=== PATIENT | male | born 1985 | race Caucasian/White ===

== ENCOUNTER 2021-08-01 07:19 | Emergency (ER) | payer MEDICAID, SELFPAY ==
[2021-08-01 07:31] VITALS: BP 125/91; PULSE 76; RESP 20; O2SAT 98
--- NOTE | 2021-08-01 07:39 | ED_ITS ---
Documented by User: YOLY Martin 08/01/21 09:32 HPI - Abdominal Pain General: Chief Complaint: Abdominal Pain Stated Complaint: ABD/back pain Time Seen by Provider: 08/01/21 07:20 Source: patient Mode of arrival: ambulatory Limitations: no limitations History of Present Illness: Patient is a 35-year-old male with a history of GOLDSTEIN and Gilbert syndrome here with his significant other for concerns of right- sided back and abdominal pains. Patient states pain came on fairly suddenly to his right back/flank and radiated around into his abdomen. states he was up all night secondary to his discomfort. He is complaining of nausea without episodes of emesis. Bowel movements have been normal. He has not noticed any urinary symptoms. He denies history of kidney stones. No fevers. MD elicited complaint: abdominal pain Onset (ago): day(s) (yesterday) Pain Consistency: constant Location: RUQ, RLQ and R flank Severity: severe Quality: sharp Exacerbating factors: nothing Relieving factors: nothing Associated Symptoms: Reports nausea; Denies change in bowel habits, chills, diarrhea, dysuria, fever(s), heartburn, hematemesis and vomiting Review of Systems Const: Denies: fever(s), chills, body aches, fatigue or malaise Card: Denies: chest pain Resp: Denies: dyspnea GI: Reports: abdominal pain and nausea; Denies: vomiting, hematemesis, heartburn, diarrhea or change in bowel habits : Reports: flank pain; Denies: difficulty urinating, dysuria, urinary frequency, urinary urgency or urinary hesitancy Musc: Denies: neck pain, extremity pain or joint pain Skin/Breast: Denies: rash Neuro: Denies: headache(s), numbness in extremities, weakness in extremities, sensory changes or dizziness Physical Exam Const: COMMON NORMALS: patient oriented x3, no limitations, alert and well nourished GENERAL APPEARANCE: cooperative and in distress (appears uncomfortable secondary to pain) ORIENTATION/CONSCIOUSNESS: Yes awake, Yes oriented to person, Yes oriented to place and Yes oriented to time HENMT: COMMON NORMALS: normocephalic and atraumatic HEAD & SCALP: normal to inspection, normocephalic and atraumatic Eye: SCLERA: scleral abnormal Laterality of scleral abnormality: positive bilateral scleral icterus (states this is fairly normal with his Gilbert's syndrome) Neck/C-Spine: GENERAL: Yes normal visual inspection Chest: COMMONS NORMALS: normal inspection of the chest and normal palpation of entire chest wall Resp: COMMON NORMALS: normal respiratory effort and clear to auscultation bilaterally AUSCULTATION: clear to auscultation bilaterally Cardio: COMMON NORMALS: regular rate and regular rhythm RATE: regular rate RHYTHM: regular rhythm GI: COMMON NORMALS: Normal to inspection, nondistended, normoactive bowel sounds present, Soft to palpation and no masses INSPECTION: Yes normal to inspection AUSCULTATION: Yes normoactive bowel sounds PALPATION: Yes Soft to palpation and Yes Tenderness to palpation present (GI) (throughout R abdomen but mainly lower; no direct RUQ pain) : BLADDER/KIDNEY EXAM: Yes CVA tenderness (tenderness inferiorly as well ) on the right Back/Pelvis: COMMON NORMALS: thoracic and lumbar spine normal to inspection, no thoracic nor lumbar tenderness and thoraco-lumbar ROM normal GENERAL BACK: Yes CVA tenderness (tenderness inferiorly as well ) Extremity: COMMON NORMALS: normal to inspection GENERAL: Yes normal exam except as noted Neuro: LILIAN COMA SCALE: document GCS findings Lilian coma scale eye opening: Spontaneous Lilian coma scale verbal response: Orientated Lilian coma scale motor response: Obey commands Lilian coma scale total score: 15 COMMON NORMALS: patient oriented x3, moves all extremities, no focal motor deficits and no sensory deficits noted SENSORIUM/ORIENTATION: Yes alert, Yes oriented to person, Yes oriented to place and Yes oriented to time Skin: COMMON NORMALS: no rashes or lesions noted NARRATIVE SKIN EXAM: overall he looks jaundiced-again he states this is fairly normal for him with his Gilbert's GENERAL SKIN EXAM: no rashes or lesions noted Course Vital Signs: Vital signs: Vital Signs Pulse Rate 73 08/01/21 09:36 Respiratory Rate 18 08/01/21 09:36 Blood Pressure 109/70 08/01/21 09:36 Pulse Oximetry 95 08/01/21 09:36 MDM - Abdominal Pain Medical Decision Making Patient has a right proximal ureter stone measuring approximately 3.8 mm. Pain is controlled here with IV pain medications. Blood work is unremarkable. UA with hematuria but no evidence for infection. CT scan also mentioned suspected undescended right testicle. When questioned about this patient states he is aware of this but has not had any follow-up for this stating I have been meaning to see urology for it . I did discuss with patient how this does place him at slightly increased risk for testicular cancer. Recommend when he follows up with Dr. Harkins for the ureter stone they also discuss this. Patient agrees. He will be sent home with pain/nausea medications and Flomax as well as a urine strainer with recommendations to push fluids. Return to ED precautions verbally given to patient. Lab Data : 08/01/21 07:40 08/01/21 07:40 Labs/Radiology: Radiology Impressions Abdomen/Pelvis CT 08/01/21 07:53 IMPRESSION: 1. 3.8 mm obstructing RIGHT UPJ calculus with moderate hydronephrosis. Minimal inflammatory stranding about the RIGHT kidney. RIGHT distal ureter is decompressed. 2. No hydronephrosis in the LEFT kidney. Tiny nonobstructing LEFT calyceal tip calculus. 3. No other acute findings. 4. Tiny fat-containing umbilical hernia. 5. Suspected undescended RIGHT testicle. Scrotal sac incompletely visualized. This can be further evaluated with ultrasound and urology consultation. Notified YOLY Martin at 08/01/2021 8:51 AM. Laboratory Results WBC 8.6 10^3/uL (4.0-10.0) 08/01/21 07:40 RBC 5.05 10^6/uL (4.1-5.3) 08/01/21 07:40 Hgb 15.9 g/dL (11.7-16.6) 08/01/21 07:40 Hct 44.8 % (42.0-52.0) 08/01/21 07:40 MCV 88.7 fl (80-94) 08/01/21 07:40 MCH 31.5 pg (28.0-34.0) 08/01/21 07:40 MCHC 35.5 g/dL (30.0-36.0) 08/01/21 07:40 RDW 12.2 % (12.1-15.1) 08/01/21 07:40 Plt Count 243 10^3/cmm (130-400) 08/01/21 07:40 MPV 12.3 fL (7.4-10.4) H 08/01/21 07:40 Neut % (Auto) 50.7 % 08/01/21 07:40 Lymph % (Auto) 35.8 % 08/01/21 07:40 [place] % (Auto) 9.2 % 08/01/21 07:40 Eos % (Auto) 3.2 % 08/01/21 07:40 Baso % (Auto) 0.9 % 08/01/21 07:40 Neut # (Auto) 4.33 10^3/uL (1.8-7.7) 08/01/21 07:40 Lymph # (Auto) 3.1 10^3/uL (0.8-4.8) 08/01/21 07:40 [place] # (Auto) 0.8 10^3/uL (0.2-0.9) 08/01/21 07:40 Eos # (Auto) 0.3 10^3/uL (0.0-0.8) 08/01/21 07:40 Baso # (Auto) 0.1 10^3/uL (0.0-0.1) 08/01/21 07:40 Nucleated RBC % (auto) 0 % 08/01/21 07:40 Nucleated RBCs # 0.0 /100WBC 08/01/21 07:40 Sodium 141 mmol/L (136-145) 08/01/21 07:40 Potassium 3.8 mmol/L (3.5-5.1) 08/01/21 07:40 Chloride 105 mmol/L (98-107) 08/01/21 07:40 Carbon Dioxide 25 mmol/L (22-29) 08/01/21 07:40 Anion Gap 14.8 (5-19) 08/01/21 07:40 BUN 15 mg/dL (6-20) 08/01/21 07:40 Creatinine 0.8 mg/dL (0.7-1.2) 08/01/21 07:40 GFR Calculation 110.0 mL/min (90-130) 08/01/21 07:40 Glucose 131 mg/dL (65-115) H 08/01/21 07:40 Calculated Osmolality 295 mOsm/kg (285-295) 08/01/21 07:40 Calcium 8.6 mg/dL (8.5-10.5) 08/01/21 07:40 Total Bilirubin 1.4 mg/dL (0.15-1.2) H 08/01/21 07:40 AST 24 U/L (0-40) 08/01/21 07:40 ALT 43 U/L (0-41) H 08/01/21 07:40 Alkaline Phosphatase 60 IU/L (40-130) 08/01/21 07:40 Total Protein 7.1 g/dL (6.6-8.7) 08/01/21 07:40 Albumin 4.7 g/dL (3.5-5.2) 08/01/21 07:40 Globulin 2.4 g/dL (1.3-4.6) 08/01/21 07:40 Lipase 36 U/L (13-60) 08/01/21 07:40 Urine Color Yellow (Yellow) 08/01/21 08:40 Urine Appearance Hazy (CLEAR) A 08/01/21 08:40 Urine pH 5 (5-7) 08/01/21 08:40 Ur Specific [place] 1.025 (1.005-1.030) 08/01/21 08:40 Urine Protein Neg (Negative) 08/01/21 08:40 Urine Glucose (UA) Norm (Normal) 08/01/21 08:40 Urine Ketones Negative (Negative) 08/01/21 08:40 Urine Blood 3+ (Negative) H 08/01/21 08:40 Urine Nitrate Negative (Negative) 08/01/21 08:40 Urine Bilirubin Neg (Negative) 08/01/21 08:40 Urine Urobilinogen Norm mg/dL (Negative) 08/01/21 08:40 Ur Leukocyte Esterase Negative (Negative) 08/01/21 08:40 Urine RBC >100 /hpf (0-2) H 08/01/21 08:40 Urine WBC 0-4 /hpf (0-5) H 08/01/21 08:40 Ur Squamous Epith Cells None /hpf (0-5) 08/01/21 08:40 Amorphous Sediment Not Reportable 08/01/21 08:40 Urine Bacteria None /hpf (NONE) 08/01/21 08:40 Discharge Plan Discharge Patient Disposition: Home Clinical Impression: Calculus of proximal left ureter Condition: Stable Prescriptions: New hydrocodone-acetaminophen 5-325 mg tablet 1 - 2 tab PO .q4-6 PRN (Reason: pain) Qty: 20 0RF Flomax 0.4 mg capsule 0.4 mg PO DAILY Qty: 10 0RF ondansetron 4 mg tablet,disintegrating 4 mg PO Q8H PRN (Reason: nausea and vomiting) Qty: 14 0RF Discharge Orders: Discharge ED (Routine); Ordered 08/01/21 Ordered By: Merle Goldstein Patient Instructions: Ureteral Stones (ED), Opioid Safety Activity Restrictions/Additional Instructions: As we discussed you need to push fluids as much as possible. Begin straining your urine and bring any stones that you passed with you to your urology follow- up appointment. Dr. Harkins can also speak to you in regards to undescended testicle findings. You need to return to the emergency department for uncontrollable pain at home, repetitive episodes of vomiting, inability to hold down your medications, fevers, or any other concerns you may have. I hope you begin to feel better soon. Coding Level of Care Code ED Fishing Tool Operator for Chg Fwd Exam Comprehensive Documented by User: Rao Holden DO 08/01/21 10:16 HPI - Abdominal Pain General: Chief Complaint: Abdominal Pain Stated Complaint: ABD/back pain Time Seen by Provider: 08/01/21 07:20 Physical Exam Neuro: LILIAN COMA SCALE: document GCS findings [facility] coma scale total score: 15 Course Vital Signs: Vital signs: Vital Signs Pulse Rate 73 08/01/21 09:36 Respiratory Rate 18 08/01/21 09:36 Blood Pressure 109/70 08/01/21 09:36 Pulse Oximetry 95 08/01/21 09:36 MDM - Abdominal Pain Medical Decision Making Patient has a right proximal ureter stone measuring approximately 3.8 mm. Pain is controlled here with IV pain medications. Blood work is unremarkable. UA with hematuria but no evidence for infection. CT scan also mentioned suspected undescended right testicle. When questioned about this patient states he is aware of this but has not had any follow-up for this stating I have been meaning to see urology for it . I did discuss with patient how this does place him at slightly increased risk for testicular cancer. Recommend when he follows up with Dr. Harkins for the ureter stone they also discuss this. Patient agrees. He will be sent home with pain/nausea medications and Flomax as well as a urine strainer with recommendations to push fluids. Return to ED precautions verbally given to patient. Chart reviewed and patient discussed with midlevel. Agree with assessment and plan. Lab Data : 08/01/21 07:40 08/01/21 07:40 Labs/Radiology: Radiology Impressions Abdomen/Pelvis CT 08/01/21 07:53 IMPRESSION: 1. 3.8 mm obstructing RIGHT UPJ calculus with moderate hydronephrosis. Minimal inflammatory stranding about the RIGHT kidney. RIGHT distal ureter is decompressed. 2. No hydronephrosis in the LEFT kidney. Tiny nonobstructing LEFT calyceal tip calculus. 3. No other acute findings. 4. Tiny fat-containing umbilical hernia. 5. Suspected undescended RIGHT testicle. Scrotal sac incompletely visualized. This can be further evaluated with ultrasound and urology consultation. Notified YOLY Martin at 08/01/2021 8:51 AM. Laboratory Results WBC 8.6 10^3/uL (4.0-10.0) 08/01/21 07:40 RBC 5.05 10^6/uL (4.1-5.3) 08/01/21 07:40 Hgb 15.9 g/dL (11.7-16.6) 08/01/21 07:40 Hct 44.8 % (42.0-52.0) 08/01/21 07:40 MCV 88.7 fl (80-94) 08/01/21 07:40 MCH 31.5 pg (28.0-34.0) 08/01/21 07:40 MCHC 35.5 g/dL (30.0-36.0) 08/01/21 07:40 RDW 12.2 % (12.1-15.1) 08/01/21 07:40 Plt Count 243 10^3/cmm (130-400) 08/01/21 07:40 MPV 12.3 fL (7.4-10.4) H 08/01/21 07:40 Neut % (Auto) 50.7 % 08/01/21 07:40 Lymph % (Auto) 35.8 % 08/01/21 07:40 [place] % (Auto) 9.2 % 08/01/21 07:40 Eos % (Auto) 3.2 % 08/01/21 07:40 Baso % (Auto) 0.9 % 08/01/21 07:40 Neut # (Auto) 4.33 10^3/uL (1.8-7.7) 08/01/21 07:40 Lymph # (Auto) 3.1 10^3/uL (0.8-4.8) 08/01/21 07:40 [place] # (Auto) 0.8 10^3/uL (0.2-0.9) 08/01/21 07:40 Eos # (Auto) 0.3 10^3/uL (0.0-0.8) 08/01/21 07:40 Baso # (Auto) 0.1 10^3/uL (0.0-0.1) 08/01/21 07:40 Nucleated RBC % (auto) 0 % 08/01/21 07:40 Nucleated RBCs # 0.0 /100WBC 08/01/21 07:40 Sodium 141 mmol/L (136-145) 08/01/21 07:40 Potassium 3.8 mmol/L (3.5-5.1) 08/01/21 07:40 Chloride 105 mmol/L (98-107) 08/01/21 07:40 Carbon Dioxide 25 mmol/L (22-29) 08/01/21 07:40 Anion Gap 14.8 (5-19) 08/01/21 07:40 BUN 15 mg/dL (6-20) 08/01/21 07:40 Creatinine 0.8 mg/dL (0.7-1.2) 08/01/21 07:40 GFR Calculation 110.0 mL/min (90-130) 08/01/21 07:40 Glucose 131 mg/dL (65-115) H 08/01/21 07:40 Calculated Osmolality 295 mOsm/kg (285-295) 08/01/21 07:40 Calcium 8.6 mg/dL (8.5-10.5) 08/01/21 07:40 Total Bilirubin 1.4 mg/dL (0.15-1.2) H 08/01/21 07:40 AST 24 U/L (0-40) 08/01/21 07:40 ALT 43 U/L (0-41) H 08/01/21 07:40 Alkaline Phosphatase 60 IU/L (40-130) 08/01/21 07:40 Total Protein 7.1 g/dL (6.6-8.7) 08/01/21 07:40 Albumin 4.7 g/dL (3.5-5.2) 08/01/21 07:40 Globulin 2.4 g/dL (1.3-4.6) 08/01/21 07:40 Lipase 36 U/L (13-60) 08/01/21 07:40 Urine Color Yellow (Yellow) 08/01/21 08:40 Urine Appearance Hazy (CLEAR) A 08/01/21 08:40 Urine pH 5 (5-7) 08/01/21 08:40 Ur Specific [place] 1.025 (1.005-1.030) 08/01/21 08:40 Urine Protein Neg (Negative) 08/01/21 08:40 Urine Glucose (UA) Norm (Normal) 08/01/21 08:40 Urine Ketones Negative (Negative) 08/01/21 08:40 Urine Blood 3+ (Negative) H 08/01/21 08:40 Urine Nitrate Negative (Negative) 08/01/21 08:40 Urine Bilirubin Neg (Negative) 08/01/21 08:40 Urine Urobilinogen Norm mg/dL (Negative) 08/01/21 08:40 Ur Leukocyte Esterase Negative (Negative) 08/01/21 08:40 Urine RBC >100 /hpf (0-2) H 08/01/21 08:40 Urine WBC 0-4 /hpf (0-5) H 08/01/21 08:40 Ur Squamous Epith Cells None /hpf (0-5) 08/01/21 08:40 Amorphous Sediment Not Reportable 08/01/21 08:40 Urine Bacteria None /hpf (NONE) 08/01/21 08:40 Discharge Plan Discharge Patient Disposition: Home Clinical Impression: Calculus of proximal left ureter Condition: Stable Prescriptions: New hydrocodone-acetaminophen 5-325 mg tablet 1 - 2 tab PO .q4-6 PRN (Reason: pain) Qty: 20 0RF Flomax 0.4 mg capsule 0.4 mg PO DAILY Qty: 10 0RF ondansetron 4 mg tablet,disintegrating 4 mg PO Q8H PRN (Reason: nausea and vomiting) Qty: 14 0RF Discharge Orders: Discharge ED (Routine); Ordered 08/01/21 Ordered By: Merle Goldstein Patient Instructions: Ureteral Stones (ED), Opioid Safety Activity Restrictions/Additional Instructions: As we discussed you need to push fluids as much as possible. Begin straining your urine and bring any stones that you passed with you to your urology follow- up appointment. Dr. Harkins can also speak to you in regards to undescended testicle findings. You need to return to the emergency department for uncontrollable pain at home, repetitive episodes of vomiting, inability to hold down your medications, fevers, or any other concerns you may have. I hope you begin to feel better soon. Coding Level of Care Code ED Fishing Tool Operator for Brett Fwteo Exam Comprehensive
[2021-08-01 07:51] VITALS: RESP 19
[2021-08-01] MEDS: sodium chloride 0.9% 1,000 ML 999 ML IV (07:51)
[2021-08-01] MEDS: morphine 4 mg/mL SDV 1 mL IVP (07:51)
[2021-08-01] MEDS: ondansetron 2 mg/ML SDV 2 mL 4 MG IVP (07:51)
--- NOTE | 2021-08-01 07:53 | CT_ITS ---
WS: [id number] CT ABDOMEN PELVIS TECHNIQUE: Noncontrast CT of the abdomen and pelvis with coronal and sagittal reformatted images. CLINICAL INFORMATION: R back/diffuse R abdominal pain COMPARISON: None. DLP: 1494.[address] scans at [facility] use at least one of these dose optimization techniques: automated e xposure control; mA and/or kV adjustment per patient size (includes targeted exams where dose is matc hed to clinical indication); or iterative reconstruction. FINDINGS: Mild RIGHT hydronephrosis with obstructing RIGHT UPJ calculus measuring 3.8 mm. Mild inflammatory str anding about the RIGHT kidney. Distal RIGHT ureter is decompressed. LEFT kidney is normal. No obstruc ting LEFT renal or ureteral calculi. LEFT ureter is decompressed. Tiny nonobstructing LEFT calyceal t ip calculus. Lung bases are well aerated. Adrenal glands are normal. Noncontrast liver is normal. Nor mal gallbladder. Noncontrast spleen is normal. Normal GE junction. Noncontrast pancreas is normal. Normal caliber abdominal aorta. Normal Sigmoid colon. No evidence of small or large bowel obstruction. Tiny fat-containing umbilical hernia. No free fluid in the pelvis. Pedicle screw fixation L5-S1 with interbody fusion. Slight anterolisthesis L5 on S1. Suspected undescended RIGHT testicle. Scrotal sac is incompletely imaged on this examination. Suspect ed Suprascrotal RIGHT testicle measuring 4.1 x 2.9 x 4.3 cm. Recommend urology consultation as patien ts at increased risk for testicular carcinoma CT/CT kidney stone [id number] IMPRESSION: 1. 3.8 mm obstructing RIGHT UPJ calculus with moderate hydronephrosis. Minimal inflammatory stranding about the RIGHT kidney. RIGHT distal ureter is decompre ssed. 2. No hydronephrosis in the LEFT kidney. Tiny nonobstructing LEFT calyceal tip calculus. 3. No other acute findings. 4. Tiny fat-containing umbilical hernia. 5. Suspected undescended RIGHT testicle. Scrotal sac incompletely visualized. This can be further evaluated with ultrasound and urology consultation. Notified YOLY Martin at 08/01/2021 8:51 AM.
[2021-08-01 08:27] VITALS: RESP 16; O2SAT 96
[2021-08-01] MEDS: HYDROmorphone 1 mg/mL INJ 1 mL IVP (08:27)
[2021-08-01 08:34] LABS: Basophils # 0.1 10^3/uL (0.0-0.1); Basophils % 0.9 %; Eosinophils # 0.3 10^3/uL (0.0-0.8); Eosinophils % 3.2 %; Hematocrit 44.8 % (42.0-52.0); Hemoglobin 15.9 g/dL (11.7-16.6); Lymphocytes # 3.1 10^3/uL (0.8-4.8); Lymphocytes % 35.8 %; Mean Corpuscular HGB Conc 35.5 g/dL (30.0-36.0); Mean Corpuscular Hemoglobin 31.5 pg (28.0-34.0); Mean Corpuscular Volume 88.7 fl (80-94); Mean Platelet Volume 12.3 fL (7.4-10.4); Monocytes # 0.8 10^3/uL (0.2-0.9); Monocytes % 9.2 %; Neutrophils # 4.33 10^3/uL (1.8-7.7); Neutrophils % 50.7 %; Nucleated Red Blood Cells % 0 %; Platelet Count 243 10^3/cmm (130-400); Red Blood Count 5.05 10^6/uL (4.1-5.3); Red Cell Distribution Width 12.2 % (12.1-15.1); White Blood Count 8.6 10^3/uL (4.0-10.0)
[2021-08-01 08:52] LABS: Add Urine Microscopic? YES; Bilirubin Urine Neg (Negative); Blood Urine 3+ (Negative); Glucose Urine UA Norm (Normal); Ketones Urine Negative (Negative); Leukocyte Esterase Urine Negative (Negative); Nitrate Urine Negative (Negative); Protein Urine Neg (Negative); Specific Gravity, Urine 1.025 (1.005-1.030); Urine Appearance Hazy (CLEAR); Urine Color Yellow (Yellow); Urobilinogen Urine Norm (Negative); pH Urine 5 (5-7)
[2021-08-01 08:53] LABS: Add Urine Culture? Yes; RBC Urine >100 /hpf (0-2); WBC Urine 0-4 /hpf (0-5)
[2021-08-01 08:54] LABS: Alanine Aminotransferase 43 U/L (0-41); Albumin Level 4.7 g/dL (3.5-5.2); Alkaline Phosphatase 60 IU/L (40-130); Anion Gap 14.8 (5-19); Aspartate Amino Transferase 24 U/L (0-40); Blood Urea Nitrogen 15 mg/dL (6-20); Calcium 8.6 mg/dL (8.5-10.5); Carbon Dioxide 25 mmol/L (22-29); Chloride 105 mmol/L (98-107); Globulin 2.4 g/dL (1.3-4.6); Glucose 131 mg/dL (65-115); Lipase 36 U/L (13-60); Osmolality Calculated 295 mOsm/kg (285-295); Potassium 3.8 mmol/L (3.5-5.1); Sodium 141 mmol/L (136-145); Total Bilirubin 1.4 mg/dL (0.15-1.2); Total Protein 7.1 g/dL (6.6-8.7)
[2021-08-01 09:36] VITALS: BP 109/70; PULSE 73; RESP 18; O2SAT 95
--- NOTE | 2021-08-02 08:39 | DCPLANNER ---
Addendum entered by Christina Tony 09/02/21 06:10: Patient had a follow up appointment scheduled for 08.28.[address] Harkins - patient did attend appointment. Addendum entered by Christina Tony 08/28/21 09:01: Patient has a follow up appointment scheduled for Saturday, August 28, 2021 at 1:00 with urology. Clinic will call patient with appointment information. Original Note: physiotherapy practice manager had message to schedule a follow up appointment for patient with urology. physiotherapy practice manager sent patients information to the front office staff at urology. Patients information will be printed and reviewed. Clinic will call patient with appointment information.
== END 2021-08-01 09:35 | disposition home or self-care (01) ==
PROVIDERS: Emergency Provider Physician Assistant
DX: N13.2 Hydronephrosis with renal and ureteral calculous obstruction (principal); K75.81 Nonalcoholic steatohepatitis (NASH); E80.4 Gilbert syndrome
CPT/HCPCS: 74176; 80053; 81001; 83690; 85025; 87086; 96361; 96374; 96375; 99284; J1170; J2270; J2405; J7030

== ENCOUNTER 2021-08-28 12:00 | Outpatient (CLI) | payer MEDICAID, SELFPAY ==
--- NOTE | 2021-08-28 13:06 | XR_ITS ---
WS: [id number] KUB, AP view, 08/28/2021. Clinical Data: STONES Comparison: None. Findings: There is a 0.4 cm calcification overlying the right L4 transverse process which may represent a proxi mal ureteral calculus. No radiopaque calculi overlie the kidneys. The kidneys are partly obscured by fecal material. There is a posterior lumbar fusion at L5-S1 with a laminectomy at L5. The bladder is partly full but there are no pelvic calculi. XR/XR KUB [id number] Impression: Probable right ureteral calculus.
== END 2021-08-28 12:01 | disposition home or self-care (01) ==
LOC: RAD 12:03
PROVIDERS: Visit Provider Urology
DX: N13.2 Hydronephrosis with renal and ureteral calculous obstruction (principal)
CPT/HCPCS: 74018; 81003

== ENCOUNTER 2021-09-03 07:48 | Day surgery (SDC) | payer MEDICAID, SELFPAY ==
[2021-08-31 10:00] VITALS: BMI 28.3
[2021-09-03] VITALS (7 sets, daily range): BP systolic 101–136; BP diastolic 53–89; PULSE 81–100; RESP 16–18; TEMP 36.2–36.5; O2SAT 93–98
--- NOTE | 2021-09-03 07:52 | XR_ITS ---
WS: [id number] Exam: XR KUB [id number] Date/Time of Exam: 09/03/2021 7:56 AM Reason For Exam: Preop right ureteral ESWL Comparison 08/28/2021. 2 calcifications are seen along the right paraspinal region at about the level of L2 and L3 and may r epresent ureteral calculi. The inferior most calcification is unchanged in location. No bowel obstruc tion or free air. Interbody fusion of the lumbar spine at L4-5. No sign of organ enlargement. XR/XR KUB [id number] IMPRESSION: 1. 2 calcifications are seen along the right paraspinal region and may represen t ureteral stones. Additional small calcification superimpose both renal silhou ettes and may represent nonobstructing bilateral renal stones.
[2021-09-03] MEDS: sodium chloride 0.9% 1,000 ML 30 ML IV (08:28)
--- NOTE | 2021-09-03 09:52 | W.PM.OPSUD ---
Surgery/Procedure H&P Update DATE OF PROCEDURE: September 03, 2021 DATE H&P PERFORMED: 08/28/21 H&P UPDATE INFORMATION: I have reviewed H&P completed within last 30 days, I have examined patient prior to procedure, No changes to prior documentation and H&[place] is in [facility] on date indicated PREOP DIAGNOSIS: Refractory right mid ureteral stone PLANNED PROCEDURE: Operation Date: 09/03/21 09:30 Proposed Procedures p RIGHT EXTRACORPOREAL SHOCKWAVE LITHOTRIPSY POSSIBLE CYSTOSCOPY RETROGRADE stent [id number], N13.2(Not Applicable) - Andrew Harkins MD s Cystoscopy(Not Applicable) - Andrew Harkins MD s Retrograde Pyelogram(Not Applicable) - Andrew Harkins MD s Ureteral Stent Placement(Not Applicable) - Andrew Harkins MD
--- NOTE | 2021-09-03 09:58 | ANES.PREANE2 ---
Pre-Anesthetic Assessment Height/Weight: Height 1.85 m Weight 97.522 kg Temp Pulse Resp BP Pulse Ox 97.7 F 92 18 122/89 98 09/03/21 08:11 09/03/21 08:11 09/03/21 08:11 09/03/21 08:11 09/03/21 08:11 Preop Diagnosis: Refractory right mid ureteral stone Operation Date: 09/03/21 09:30 Proposed Procedures p RIGHT EXTRACORPOREAL SHOCKWAVE LITHOTRIPSY POSSIBLE CYSTOSCOPY RETROGRADE stent [id number], N13.2(Not Applicable) - Andrew Harkins MD s Cystoscopy(Not Applicable) - Andrew Harkins MD s Retrograde Pyelogram(Not Applicable) - Andrew Harkins MD s Ureteral Stent Placement(Not Applicable) - Andrew Harkins MD Familial anesthetic complications: None Was Beta Horace taken within 24 hours: N/A Was Clonidine taken within 24 hours: N/A Last intake: Intake Last Liquid Date 09/02/21 Last Liquid Time 22:30 Last Solid Date 09/02/21 Last Solid Time 22:00 Social No alcohol and No tobacco Exam alert, oriented x 3, clear to auscultation bilaterally and regular rate & rhythm Airway Submandibular: within normal limits Cervical ROM: within normal limits Mallampati: Class I Dentition: full History/ROS No significant complaints Pulmonary None reported CV/HEM None reported METS > 4 ureteral stone Hepatic None reported GI None reported Metabolic None reported Musc/skel None reported Neuropsych None reported Anesthetic Plan ASA status: 2 Anesthesia: Anesthesia Evaluation and General Other: We discussed risk and benefits of general anesthesia including PONV, sore throat (sometimes severe), corneal abrasion, positioning and peripheral nerve injuries, life threatening allergic reaction, post operative ICU admission requiring prolonged intubation, stroke, heart attack, , and rare incidences of recall. Patient consents to proceed with general anesthesia. Risk of > 500 ml blood loss (7ml/kg in children): No Medications/Allergies Home Medications Medication Instructions Recorded Confirmed Last Taken Type No Known Home Medications 08/31/21 08/31/21 Unknown History Allergies Allergy/AdvReac Type Severity Reaction Status Date / Time clindamycin Allergy HARD TO Verified 08/31/21 09:58 BREATHE Current Medications Generic Name Dose Route Start Last Admin Trade Name Freq PRN Reason Stop Dose Admin Sodium Chloride 1,000 mls @ 30 mls/hr 09/03/21 08:00 09/03/21 08:28 Sodium Chloride 0.9% IV 09/04/21 07:59 30 mls/hr .Q24H AIMEE Administration PFSH Anesthesia Medical History Retractile testis Ureteral stone with hydronephrosis Family History Father Diabetes Osteoporosis Cardiovascular disease Neuropathy Mother Psychiatric illness Cancer SKIN Social History Smoking and tobacco status: never smoked Alcohol intake: current Alcohol intake frequency: holidays/special occasions only Marital status: Current occupational status: employed History of recent travel: No Data Anesthesia Cardiac Studies: No Data to Display
--- NOTE | 2021-09-03 10:05 | P.OP_ITS ---
Operative Report Date of procedure: September 03, 2021 Pre-op diagnosis: Refractory right mid ureteral stone Post-op diagnosis: Refractory right mid ureteral stone Procedure done: Right ureteral extracorporeal shockwave lithotripsy, no stent Implants: None Specimens removed/disposition: None Pathology: None Oral And Maxillofacial Surgery: Lithotripsy mechanical sound technician: Emily Anesthesia: General Estimated blood loss: None Urine output: Not measured Complications: None Findings: Stone easily identified on fluoroscopy. 2500 shocks administered Change: Brief History: is a very pleasant 36-year-old white male who I evaluated for the first time on 08/28/2021 after ED evaluation for severe right renal colicky symptoms and discovery of a 4 to 5 mm stone in the right mid ureter with obstructive changes. In addition had a very small LEFT calyceal tip stone that was nonobstructing. The stone has shown very minimal progress. He was offered further conservative management versus treatment. Treatment options included ESWL with or without stent or endoscopy with or without stent. After good [id number] conversation he elected to proceed with ESWL with or without stent with decision to be made real-time intraoperatively. Procedure: After routine preoperative evaluation examination and obtaining of informed consent he was taken to the operating suite on 09/03/2021 where general anesthes ia was administered without difficulty after appropriate timeout was performed, SCDs confirmed to be functioning, preoperative antibiotics administered, beta- simone protocol confirmed. Position on the Dornier unit in supine position paying careful attention to avoiding pressure points. The shock head was positioned anteriorly. The stone was brought into the focal point utilizing biplanar fluoroscopy. Shockwave therapy was initiated at a rate of 70 and later advanced to rate of 90. Power was initiated at a low power and advanced to 8 Total number of shocks: 2500 Results: good change. Hard to see any residual stone fragments at the completion Decided to not leave a stent indwelling because of the good results in the starting size of the stone. He tolerated procedure well without complications and was awakened in the operating room and returned to the recovery room in stable condition. PLANS: 1. Anticipate discharge from outpatient surgery 2. Follow-up in about 2 to 3 weeks with [facility]. Strain all voids
--- NOTE | 2021-09-03 11:03 | SUR.PHASEI ---
patient brought into pacu on room air. sats at 94%. patient resting, no pain per faces. no dressing present.
[2021-09-03] MEDS: HYDROcodone-acetaminophen 5-325 mg Tablet 1 TAB PO (11:54)
--- NOTE | 2021-09-03 13:53 | ANE.PACU2 ---
Inpatient post-anesthesia follow up: Airway intact: Yes Vital signs: Temperature 97.5 F Pulse Rate 81 Respiratory Rate 18 Blood Pressure 117/88 Pulse Oximetry 97 Oxygen Delivery Me thod Room Air Oxygen Flow Rate Fraction of Inspir ed Oxygen Hydration adequate: Yes Nausea and vomiting: No Pain level: 2 Mental status: Baseline
== END 2021-09-03 12:05 | disposition home or self-care (01) ==
PROVIDERS: Visit Provider Urology
PROC: (CPT 50590; principal; 2021-09-03 09:30)
DX: N13.2 Hydronephrosis with renal and ureteral calculous obstruction (principal); Q55.22 Retractile testis
CPT/HCPCS: 50590; 74018; J0330; J1100; J2405; J2704; J3010; J7030

== ENCOUNTER → 2021-09-13 17:46 | Outpatient (BNVA) | payer MEDICAID, SELFPAY | PROVIDERS: Visit Provider Nurse Practitioner Family | DX: N13.2 Hydronephrosis with renal and ureteral calculous obstruction (principal) | CPT/HCPCS: 88300 ==

== ENCOUNTER → 2021-09-19 12:47 | Outpatient (BNVA) | payer MEDICAID, SELFPAY | PROVIDERS: Visit Provider Nurse Practitioner Family | DX: N13.2 Hydronephrosis with renal and ureteral calculous obstruction (principal) | CPT/HCPCS: 82365 ==

== ENCOUNTER 2021-10-17 12:08 | Outpatient (CLI) | payer MEDICAID, SELFPAY ==
--- NOTE | 2021-10-17 12:30 | XR_ITS ---
WS: [id number], AP view, 10/17/2021 Clinical Data: Ureteral Stone Comparison: [facility], 09/03/2021 Findings: No abnormal intraabdominal masses or calcifications are seen. There is no dilatated small bowel or ev idence of obstruction. The calcifications adjacent to the L3 and L4 right transverse processes are not seen on this exam. Th ere is fecal material throughout the colon. No definite renal calcifications are seen. The posterior lumbosacral fusion with a laminectomy at L5 remains the same. XR/XR [facility] [id number] Impression: The right paraspinal calcifications are not seen on this exam.
== END 2021-10-17 12:09 | disposition home or self-care (01) ==
PROVIDERS: Visit Provider Urology
DX: N13.2 Hydronephrosis with renal and ureteral calculous obstruction (principal)
CPT/HCPCS: 74018; 81003; 99024; 99213

== ENCOUNTER 2021-11-02 07:20 | Outpatient (CLI) | payer MEDICAID, SELFPAY ==
--- NOTE | 2021-11-02 07:33 | XR_ITS ---
WS: [id number], AP view, 11/02/2021 Clinical Data: STONES Comparison: [facility], 10/17/2021. Findings: No abnormal intraabdominal masses or calcifications are seen. There is no dilatated small bowel or ev idence of obstruction. There is a large amount of fecal material throughout the colon. The posterior lumbosacral fusion at L 5-S1 remains the same. There is a calcification of the right side of the pelvis unchanged. XR/XR KUB [id number] Impression: Negative for renal calcifications.
== END 2021-11-02 07:21 | disposition home or self-care (01) ==
PROVIDERS: Visit Provider Urology
DX: N20.1 Calculus of ureter (principal)
CPT/HCPCS: 74018; 81003

== ENCOUNTER 2024-02-24 09:18 | Emergency (ER) | payer SELFPAY ==
[2024-02-24 09:19] VITALS: BP 136/86; PULSE 78; RESP 18; TEMP 36.6; O2SAT 97; BMI 29.9
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
[2024-02-24] MEDS: tetanus-dipt-pertussis 0.5 mL SDV IM (11:00)
[2024-02-24] MEDS: lidocaine-epi 1% 20 mL INJ INJECTION (11:03)
--- NOTE | 2024-02-24 11:04 | PC.PHAR ---
PT WANTS MEDS TO [facility], NOW.
[2024-02-24 11:18] VITALS: BP 146/90; PULSE 83; O2SAT 98
[2024-02-24 11:19] LABS: Basophils # 0.1 10^3/uL (0.0-0.1); Basophils % 0.4 %; Eosinophils % 0.2 %; Hematocrit 43.9 % (37-53); Lymphocytes # 0.8 10^3/uL (0.8-4.8); Lymphocytes % 5.4 %; Mean Platelet Volume 11.5 fL (7.4-10.4); Monocytes # 0.7 10^3/uL (0.2-0.9); Monocytes % 4.7 %; Neutrophils # 12.95 10^3/uL (1.8-7.7); Neutrophils % 88.8 %; Nucleated Red Blood Cells % 0 %; Platelet Count 213 10^3/cmm (157-399); Red Blood Count 4.93 10^6/uL (3.85-5.65); Red Cell Distribution Width 12.4 % (12.1-15.1); White Blood Count 14.59 10^3/uL (3.29-11.43)
[2024-02-24 11:38] LABS: Alanine Aminotransferase 55 U/L (0-41); Albumin Level 4.3 g/dL (3.5-5.2); Alkaline Phosphatase 63 U/L (40-130); Anion Gap 12.7 (5-19); Aspartate Amino Transferase 37 U/L (0-40); Blood Urea Nitrogen 16 mg/dL (6-20); Calcium 9.3 mg/dL (8.5-10.5); Carbon Dioxide 26 mmol/L (22-29); Chloride 101 mmol/L (98-107); Creatinine Clr Calc Pharmacy 157.8273; Glomerular Filtration Rate 108.2 mL/min (90-130); Glucose 130 mg/dL (65-115); Osmolality Calculated 285 mOsm/kg (285-295); Potassium 3.7 mmol/L (3.5-5.1); Sodium 136 mmol/L (136-145); Total Bilirubin 1.3 mg/dL (0.15-1.2); Total Protein 7.3 g/dL (6.6-8.7)
== END 2024-02-24 11:19 | disposition home or self-care (01) ==
PROVIDERS: Emergency Provider Physician Assistant
DX: S01.81XA Laceration without foreign body of other part of head, initial encounter (principal); S20.221A Contusion of right back wall of thorax, initial encounter; V89.2XXA Person injured in unspecified motor-vehicle accident, traffic, initial encounter
CPT/HCPCS: 12013; 36415; 70450; 71260; 72125; 74177; 80053; 85025; 90471; 90715; 99284; Q9967

== ENCOUNTER 2024-03-02 11:52 | Emergency (ER) | payer OTHER, SELFPAY ==
[2024-03-02 11:54] VITALS: BP 133/88; PULSE 81; RESP 16; TEMP 36.6; O2SAT 97; BMI 29.9
[2024-03-02 12:17] VITALS: BP 133/88; PULSE 81; RESP 16; TEMP 36.6; O2SAT 97
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
== END 2024-03-02 13:11 | disposition home or self-care (01) ==
PROVIDERS: Emergency Provider Physician Assistant
DX: Z48.02 Encounter for removal of sutures (principal)
CPT/HCPCS: 99281

== ENCOUNTER → 2024-04-06 15:51 | Outpatient (BNVA) | payer OTHER, SELFPAY | PROVIDERS: Visit Provider Orthopaedic Surgery | DX: M54.2 Cervicalgia (principal); M54.6 Pain in thoracic spine | CPT/HCPCS: 72050; 72072 ==

== ENCOUNTER 2024-04-12 06:50 | Outpatient (CLI) | payer OTHER, SELFPAY ==
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
== END 2024-04-12 06:51 | disposition home or self-care (01) ==
LOC: RAD 06:51
PROVIDERS: Visit Provider Orthopaedic Surgery
DX: M50.221 Other cervical disc displacement at C4-C5 level (principal); V89.2XXA Person injured in unspecified motor-vehicle accident, traffic, initial encounter; R93.7 Abnormal findings on diagnostic imaging of other parts of musculoskeletal system
CPT/HCPCS: 72141

== ENCOUNTER → 2024-04-16 10:50 | Outpatient (BNVA) | payer OTHER, SELFPAY | PROVIDERS: Visit Provider Orthopaedic Surgery | DX: M25.511 Pain in right shoulder (principal); S43.431A Superior glenoid labrum lesion of right shoulder, initial encounter; V89.2XXA Person injured in unspecified motor-vehicle accident, traffic, initial encounter | CPT/HCPCS: 73030 ==

== ENCOUNTER 2024-05-04 09:14 | Outpatient (CLI) | payer OTHER, SELFPAY ==
--- NOTE | 2024-05-04 09:30 | MR_ITS ---
WS: [id number] MRI RIGHT SHOULDER NONCONTRAST TECHNIQUE: Sagittal T2, coronal T1, T2 and proton density imaging. Axial gradient PDE imaging. CLINICAL INFORMATION: shoulder pain COMPARISON: None. FINDINGS: Degenerative arthritis at the AC joint advanced for patient this age with fluid and edema. Associated synovial thickening with a small AC joint effusion. Small amount of subacromial subdeltoid fluid. Mild downsloping acromion with slight subacromial spurring. Impingement on the distal supraspinatus with tendinopathy. Normal infraspinatus. Normal teres minor. Subscapularis tendon appears intact. Slight medial subluxation of the proximal biceps tendon in the bicipital groove. Intra-articular biceps tendon appears intact. Thickening along the axillary recess with visibly small shoulder capsule can be seen with adhesive capsulitis in the appropriate clinical setting. Small amount of increased signal along the posterior superior labrum suspicious for labral tear. Recommend correlation for instability. This could be further evaluated with arthrogram if indicated. MR/MR shoulder RT wo con* [id number] IMPRESSION: 1. Advanced degenerative arthritis AC joint for patient this age with fluid an d edema. Associated synovial thickening. Small amount of subacromial fluid. 2. Slight impingement on the distal supraspinatus with tendinopathy. 3. Medial subluxation proximal biceps tendon from the bicipital groove. Intra- articular biceps tendon appears intact. 4. Visibly small joint capsule thickening of the axillary recess can be seen w ith adhesive capsulitis in the clinical setting. 5. Irregularity with a small amount of increased signal involving the superior posterior labrum suspicious for labral tear
== END 2024-05-04 09:15 | disposition home or self-care (01) ==
PROVIDERS: Visit Provider Orthopaedic Surgery
DX: S43.439A Superior glenoid labrum lesion of unspecified shoulder, initial encounter (principal); M19.011 Primary osteoarthritis, right shoulder; R93.6 Abnormal findings on diagnostic imaging of limbs; S43.081A Other subluxation of right shoulder joint, initial encounter; X58.XXXA Exposure to other specified factors, initial encounter
CPT/HCPCS: 73221

== ENCOUNTER → 2024-05-18 07:44 | Outpatient (BNVA) | payer OTHER, SELFPAY | PROVIDERS: Visit Provider Orthopaedic Surgery | DX: S12.491D Other nondisplaced fracture of fifth cervical vertebra, subsequent encounter for fracture with routine healing (principal); M54.2 Cervicalgia; X58.XXXD Exposure to other specified factors, subsequent encounter | CPT/HCPCS: 72040 ==

== ENCOUNTER 2024-05-19 09:01 | Outpatient (RCR) | payer OTHER, SELFPAY | END 2024-06-14 23:59 | disposition home or self-care (01) | LOC: SPT 09:01 | PROVIDERS: Visit Provider Orthopaedic Surgery | DX: S12.401D Unspecified nondisplaced fracture of fifth cervical vertebra, subsequent encounter for fracture with routine healing (principal); X58.XXXD Exposure to other specified factors, subsequent encounter | CPT/HCPCS: 97110; 97140; 97161 ==

== ENCOUNTER 2024-06-15 06:00 | Outpatient (RCR) | payer OTHER, SELFPAY | END 2024-07-14 23:59 | disposition home or self-care (01) | LOC: SPT 06:00 | PROVIDERS: Visit Provider Orthopaedic Surgery | DX: S12.401D Unspecified nondisplaced fracture of fifth cervical vertebra, subsequent encounter for fracture with routine healing (principal); X58.XXXD Exposure to other specified factors, subsequent encounter | CPT/HCPCS: 97110; 97150 ==

== ENCOUNTER 2024-07-15 06:30 | Outpatient (RCR) | payer OTHER, SELFPAY | END 2024-07-20 08:11 | disposition home or self-care (01) | LOC: SPT 06:30 | PROVIDERS: Visit Provider Orthopaedic Surgery | DX: S12.401D Unspecified nondisplaced fracture of fifth cervical vertebra, subsequent encounter for fracture with routine healing (principal); X58.XXXD Exposure to other specified factors, subsequent encounter | CPT/HCPCS: 97110 ==